=== PATIENT | male | born 1955 | race Caucasian/White ===

== ENCOUNTER 2016-10-10 19:21 | Outpatient (CLI) | payer OTHER | END 2016-10-10 19:22 | disposition home or self-care (01) | DX: G47.61 Periodic limb movement disorder (principal); R06.83 Snoring ==

== ENCOUNTER 2016-11-22 13:24 | Outpatient (CLI) | payer OTHER | END 2016-11-22 13:25 | disposition home or self-care (01) | DX: R06.83 Snoring (principal) ==

== ENCOUNTER 2019-12-18 16:18 | Outpatient (CLI) | payer OTHER | END 2019-12-18 16:19 | disposition home or self-care (01) | LOC: COV 16:18 | PROVIDERS: ATTEND Family Medicine | DX: R05 Cough (principal); R50.9 Fever, unspecified | CPT/HCPCS: 81599 ==

== ENCOUNTER 2024-05-03 09:13 | Outpatient (CLI) | payer OTHER | END 2024-05-03 23:59 | disposition short-term general hospital (02) | LOC: EMS 09:13 | DX: R10.32 Left lower quadrant pain (principal); R11.0 Nausea; R14.0 Abdominal distension (gaseous); R39.89 Other symptoms and signs involving the genitourinary system | CPT/HCPCS: A0425; A0427 ==